=== PATIENT | male | born 1950 | race Two or more races ===

== ENCOUNTER 2023-04-28 21:22 | Emergency (ER) | payer MEDICARE, OTHER ==
[2023-04-28] MEDS ORDERED: Sodium Chloride 0.9% 10 ML Syringe FLUSH PRN (21:56)
[2023-04-28 22:00] LABS: BASOPHILS ABSOLUTE AUTO 0.08 K/uL (0.00-0.10); BASOPHILS PERCENT AUTO 1.1 % (0.1-1.3); EOSINOPHILS ABSOLUTE AUTO 0.39 K/uL (0.00-0.40); EOSINOPHILS PERCENT AUTO 5.5 % (0.0-5.4); HEMATOCRIT 40.3 % (38.4-49.7); HEMOGLOBIN 14.3 g/dL (12.9-16.9); IMMATURE GRAN ABSOLUTE AUTO 0.02 K/uL (0.00-0.23); IMMATURE GRAN PERCENT AUTO 0.3 % (0.0-0.7); LYMPHOCYTES ABSOLUTE AUTO 2.44 K/uL (0.8-3.3); LYMPHOCYTES PERCENT AUTO 34.4 % (11.4-47.7); MEAN CORPUSCULAR HEMOGLOBIN 32.9 pg (31.6-35.5); MEAN CORPUSCULAR HGB CONC 35.5 g/dL (31.6-35.5); MEAN CORPUSCULAR VOLUME 92.6 fL (81.4-99.0); MONOCYTES PERCENT AUTO 8.5 % (3.3-12.6); NEUTROPHILS ABSOLUTE AUTO 3.56 K/uL (1.0-7.6); NEUTROPHILS PERCENT AUTO 50.2 % (40.0-78.1); PLATELET COUNT,PLT 315 K/uL (130-375); RED BLOOD CELL COUNT 4.35 M/uL (4.14-5.76); WHITE BLOOD CELL COUNT,WBC 7.1 K/uL (3.2-11.0)
[2023-04-28] MEDS ORDERED: Metoprolol Tartrate 5 MG in Sodium Chloride 0.9% 50 ML IV ONE (22:08)
[2023-04-28 22:09] LABS: PROTHROMBIN TIME 10.6 sec (9.2-10.6); PTT,PARTIAL THROMBOPLSTIN TIME 25.8 sec (21.8-27.3)
[2023-04-28 22:19] LABS: ANION GAP 13.2 mmol/L (5.0-14.0); CALCIUM 9.1 mg/dL (8.5-10.1); CREATININE 1.5 mg/dL (0.8-1.3); EST CRCL DRUG DOSING (CG) 43.86 mL/min; MAGNESIUM 1.8 mg/dL (1.8-2.4); POTASSIUM,K 4.2 mmol/L (3.6-5.2); TSH ULTRASENSITIVE 0.207 uIU/mL (0.358-3.740)
[2023-04-28] MEDS: Metoprolol Tartrate 5 MG/5 ML SDV IVPUSH ONE ×2 (22:21→22:42)
[2023-04-28] MEDS ORDERED: Sodium Chloride 0.9% 500 ML IV ONE ×2 (22:46→23:16)
[2023-04-29] MEDS ORDERED: Metoprolol Tartrate 5 MG in Sodium Chloride 0.9% 50 ML IV ONE ×2 (01:29→01:49)
== END 2023-04-29 03:05 | disposition home or self-care (01) ==
LOC: JP.ED 21:22
DX: I48.91 Unspecified atrial fibrillation (principal); R94.31 Abnormal electrocardiogram [ECG] [EKG]; E11.9 Type 2 diabetes mellitus without complications; I10 Essential (primary) hypertension; E78.00 Pure hypercholesterolemia, unspecified; J45.909 Unspecified asthma, uncomplicated; Z86.16 Personal history of COVID-19; Z88.0 Allergy status to penicillin; Z88.5 Allergy status to narcotic agent; Z91.048 Other nonmedicinal substance allergy status; Z79.82 Long term (current) use of aspirin; Z79.899 Other long term (current) drug therapy
CPT/HCPCS: 36415; 80048; 83735; 84439; 84443; 84484; 85025; 85610; 85730; 93005; 96374; 96376; 99285; J3490; J7040